=== PATIENT | male | born 1960 | race African-American/Black ===

== ENCOUNTER 2023-11-21 04:08 | Emergency (ER) | payer MEDICAID ==
[~2023-11-21] VITALS: Ht 170.2 cm; Wt 87.0 kg
[~2023-11-21 04:08] MED LIST: ASPI-1497 PO; FURO20TA4 PO; HYDR50TA PO
[2023-11-21 04:09] VITALS: TEMP 98.4; O2SAT 99
[2023-11-21 04:45] VITALS: BP 134/68; PULSE 80; RESP 20
[2023-11-21 05:11] LABS: HEMATOCRIT. 36.9 % (42.0-52.0); HEMOGLOBIN. 12.3 g/dL (14.0-18.0); MEAN CORPUSCULAR HGB CONC 33.3 g/dL (31.0-37.0); MEAN CORPUSCULAR VOLUME 84.2 fL (80.0-94.0); PLATELET 220 x1000/uL (130-400); RED BLOOD CELL COUNT 4.38 mill/uL (4.7-6.1); RED CELL DISTRIBUTION WIDTH 14.5 % (11.6-14.6); WHITE BLOOD COUNT 15.7 x1000/uL (4.5-11.0)
[2023-11-21 05:17] LABS: CHLORIDE 105 mEq/L (98-107)
[2023-11-21 05:18] LABS: CARBON DIOXIDE 29 mEq/L (21-32); POTASSIUM 3.9 mEq/L (3.5-5.1); SODIUM 140 mEq/L (136-145)
[2023-11-21 05:19] LABS: CALCIUM 8.5 mg/dL (8.7-10.4)
[2023-11-21 05:24] LABS: ETHANOL BLOOD < 10 mg/dL (<10); GLUCOSE 109 mg/dL (70-105); UREA NITROGEN BLOOD 49 mg/dL (9-23)
[2023-11-21 05:25] LABS: ACETAMINOPHEN 3 ug/mL (10-30)
[2023-11-21 05:29] LABS: CREATININE 2.2 mg/dL (0.6-1.3)
[2023-11-21 05:32] LABS: DIFFERENTIAL COMMENT 1
[2023-11-21 07:39] LABS: PLATELET ESTIMATE NORMAL
[2023-11-21] MEDS: SODIUM CHLORIDE 0.9% 1,000 ML IV ONE (07:50)
[2023-11-21 09:42] LABS: CLARITY URINE CLEAR (CLEAR); COLOR URINE YELLOW (YELLOW); GLUCOSE URINE NEGATIVE (NEGATIVE); KETONES URINE NEGATIVE (NEGATIVE); LEUKOCYTE ESTERASE URINE NEGATIVE (NEGATIVE); NITRITE URINE NEGATIVE (NEGATIVE); OCCULT BLOOD URINE 1+ (NEGATIVE); PH URINE 5.5 (4.5-8.0); PROTEIN URINE TRACE (NEGATIVE); SPECIFIC GRAVITY URINE 1.011 (1.005-1.030); UROBILINOGEN URINE 0.2 E.U./dL (0.2-1.0)
[2023-11-21 09:59] LABS: BACTERIA URINE FEW; RBC URINE 0-2 /hpf (0-2); SQUAMOUS EPITHELIAL CELL URINE NONE SEEN /lpf (RARE/1+); WBC URINE 0-2 /hpf (0-2); YEAST URINE NONE SEEN
[2023-11-21 10:18] LABS: *AMPHETAMINES SCREEN URINE NEGATIVE (NEGATIVE); *BARBITURATES SCREEN URINE NEGATIVE (NEGATIVE); *COCAINE SCREEN URINE PRESUMPTIVE POSITIVE (NEGATIVE); ECSTASY MDMA SCREEN URINE NEGATIVE (NEGATIVE); METHADONE URINE SCREEN NEGATIVE (NEGATIVE); OPIATES URINE SCREEN NEGATIVE (NEGATIVE)
[2023-11-21 12:19] LABS: *BENZODIAZEPINES SCREEN URINE NEGATIVE (NEGATIVE); CANNABINOID URINE SCREEN NEGATIVE (NEGATIVE); PHENCYCLIDINE URINE SCREEN NEGATIVE (NEGATIVE)
== END 2023-11-21 12:55 | disposition home or self-care (01) ==
LOC: ER 04:08
DX: F19.90 Other psychoactive substance use, unspecified, uncomplicated (principal); I11.0 Hypertensive heart disease with heart failure; I50.9 Heart failure, unspecified; Z00.00 Encounter for general adult medical examination without abnormal findings
CPT/HCPCS: 80305; 80048; 81003; 80307; 80329; 80320; 85025; 36415; 93005; 99284; J7030; Z7610 ×2; G0480

== ENCOUNTER 2024-06-12 10:47 | Emergency (ER) | payer OTHER ==
[~2024-06-12] VITALS: Ht 175.3 cm; Wt 90.0 kg
[~2024-06-12 10:47] MED LIST changes: +ALBU6.7H15 INH; +BUDE10.27 INH; +FAMO20TA8 PO; +LISI10TA26 PO; +P20 MT; +[UNRECOGNIZED DRUG - CODE] PO
[2024-06-12 10:49] VITALS: BP 184/111; PULSE 97; RESP 18; TEMP 98.7; O2SAT 97
[2024-06-12] MEDS: AMLODIPINE 10MG TABLET PO ONE (12:27)
[2024-06-12] MEDS ORDERED: LISI10TA26 PO (13:08)
[2024-06-14] MEDS ORDERED: HYDR25TA78 (08:28)
[2024-06-14] MEDS ORDERED: AMLO5TAB88 (08:28)
[2024-06-14] MEDS ORDERED: HYDR25TA78 PO (09:05)
[2024-06-14] MEDS ORDERED: AMLO5TAB88 PO (09:05)
[2024-06-14] MEDS ORDERED: ALBU90AE INH (09:05)
[2024-06-14] MEDS ORDERED: THIA100T72 PO (09:05)
[2024-06-14] MEDS ORDERED: FOLI-43 PO (09:05)
[2024-06-14] MEDS ORDERED: PROT20 MT (09:05)
[2024-06-14] MEDS ORDERED: BUDE6.9H INH (09:05)
== END 2024-06-12 13:46 | disposition home or self-care (01) ==
LOC: ER 11:52
DX: T73.0XXA Starvation, initial encounter (principal); I10 Essential (primary) hypertension; K21.9 Gastro-esophageal reflux disease without esophagitis; Z79.82 Long term (current) use of aspirin; Z79.899 Other long term (current) drug therapy; X58.XXXA Exposure to other specified factors, initial encounter
CPT/HCPCS: 99283; Z7610 ×2

== ENCOUNTER 2024-10-14 12:06 | Emergency (ER) | payer OTHER ==
[~2024-10-14] VITALS: Ht 172.7 cm; Wt 85.0 kg
[~2024-10-14 12:06] MED LIST changes: -ALBU6.7H15 INH; +ALBU90AE INH; +AMLO5TAB88 PO; -ASPI-1497 PO; -BUDE10.27 INH; +BUDE6.9H INH; -FAMO20TA8 PO; +FOLI-43 PO; -FURO20TA4 PO; +HYDR25TA78 PO; -HYDR50TA PO; -LISI10TA26 PO; -P20 MT; +PROT20 MT; +THIA100T72 PO; -[UNRECOGNIZED DRUG - CODE] PO
[2024-10-14 12:09] VITALS: BP 174/106; PULSE 58; RESP 17; TEMP 37.1; O2SAT 100
[2024-10-14] MEDS ORDERED: SODIUM CHLORIDE 0.9% (SEPSIS BOLUS) IV ONE (12:45)
[2024-10-14] MEDS ORDERED: VANCOMYCIN 1G PREMIX 200 ML IV ONE (12:45)
[2024-10-14] MEDS ORDERED: PIPERACILLIN/TAZO 3.375G/50ML 50 ML IV ONE (12:45)
== END 2024-10-14 13:51 | disposition left against medical advice (07) ==
LOC: ER 12:06 → EDBEDREQ 12:44 → ER 13:51
DX: R10.9 Unspecified abdominal pain (principal); J45.909 Unspecified asthma, uncomplicated; I10 Essential (primary) hypertension; Z79.899 Other long term (current) drug therapy; Z98.890 Other specified postprocedural states
CPT/HCPCS: 99283; J7030

== ENCOUNTER 2025-03-04 11:33 | Inpatient (IN) | payer OTHER ==
[2025-03-04] VITALS (25 sets, daily range): BP systolic 139–190; BP diastolic 71–105; PULSE 77–102; RESP 14–36; TEMP 36.8–36.8072; O2SAT 94–100
[~2025-03-04] VITALS: Ht 172.7 cm; Wt 74.4 kg
[2025-03-04 12:27] LABS: HEMATOCRIT. 35.4 % (42.0-52.0); HEMOGLOBIN. 11.0 g/dL (14.0-18.0); MEAN PLATELET VOLUME 8.0 fl (7.4-10.4); PLATELET 261 x1000/uL (130-400); RED BLOOD CELL COUNT 4.93 mill/uL (4.7-6.1); RED CELL DISTRIBUTION WIDTH 18.7 % (11.6-14.6)
[2025-03-04 12:45] LABS: CLARITY URINE CLEAR (CLEAR); COLOR URINE YELLOW (YELLOW); GLUCOSE URINE NEGATIVE (NEGATIVE); KETONES URINE NEGATIVE (NEGATIVE); LEUKOCYTE ESTERASE URINE NEGATIVE (NEGATIVE); NITRITE URINE NEGATIVE (NEGATIVE); OCCULT BLOOD URINE 1+ (NEGATIVE); PH URINE 8.0 (4.5-8.0); PROTEIN URINE 3+ (NEGATIVE); SPECIFIC GRAVITY URINE 1.010 (1.005-1.030); UROBILINOGEN URINE 0.2 E.U./dL (0.2-1.0)
[2025-03-04 12:54] LABS: INR 1.1
[2025-03-04 12:58] LABS: CREATININE 1.2 mg/dL (0.6-1.3)
[2025-03-04 12:59] LABS: UREA NITROGEN BLOOD 12 mg/dL (9-23)
[2025-03-04 13:00] LABS: ASPARTATE AMINOTRANSFERASE 32 IU/L (<34); BILIRUBIN DIRECT 0.3 mg/dL (<=3.0)
[2025-03-04 13:01] LABS: BILIRUBIN TOTAL 1.0 mg/dL (0.1-1.0); PROTEIN TOTAL 7.3 g/dL (6.0-8.3)
[2025-03-04 13:30] LABS: SQUAMOUS EPITHELIAL CELL URINE RARE /lpf (RARE/1+)
[2025-03-04 13:31] LABS: RBC URINE 0-2 /hpf (0-2)
[2025-03-04 13:32] LABS: BACTERIA URINE NONE SEEN; WBC URINE NONE SEEN /hpf (0-2)
[2025-03-04 13:45] LABS: BAND% 3.0 % (1.0-6.0); LYMPHOCYTES % MANUAL 5.0 % (20.0-50.0); MONOCYTES % MANUAL 3.0 % (2.0-8.0); NEUTROPHILS % MANUAL 89.0 % (45.0-75.0); PLATELET ESTIMATE NORMAL
[2025-03-04 14:01] LABS: *AMPHETAMINES SCREEN URINE NEGATIVE (NEGATIVE)
[2025-03-04 14:02] LABS: *BARBITURATES SCREEN URINE NEGATIVE (NEGATIVE); *BENZODIAZEPINES SCREEN URINE NEGATIVE (NEGATIVE); *COCAINE SCREEN URINE PRESUMPTIVE POSITIVE (NEGATIVE); CANNABINOID URINE SCREEN NEGATIVE (NEGATIVE); ECSTASY MDMA SCREEN URINE NEGATIVE (NEGATIVE); METHADONE URINE SCREEN NEGATIVE (NEGATIVE); OPIATES URINE SCREEN NEGATIVE (NEGATIVE); PHENCYCLIDINE URINE SCREEN NEGATIVE (NEGATIVE)
[2025-03-04] MEDS ORDERED: NICARDIPINE 40MG/200ML PREMIX 200 ML IV PRN (14:15)
[2025-03-04] MEDS: LABETALOL 5MG/ML 4ML INJ IV ONE (15:09)
[2025-03-04] MEDS: NICARDIPINE 40MG/200ML PREMIX 200 ML IV PRN ×2 (16:03→21:19)
[2025-03-04] MEDS ORDERED: HYDROCODONE/ACETAMINOPHEN 5/325MG TABLET PO PRN (17:30)
[2025-03-04] MEDS ORDERED: ACETAMINOPHEN 325MG TABLET PO PRN (17:30)
[2025-03-04] MEDS ORDERED: MAGNESIUM/ALUMINUM HYDROXIDE/SIMETHICONE 30ML UDC PO PRN (17:30)
[2025-03-04] MEDS ORDERED: NALOXONE HCL 0.4MG/ML VIAL IV PRN (17:30)
[2025-03-04] MEDS ORDERED: ZOLPIDEM TARTRATE 5MG TABLET PO PRN (17:30)
[2025-03-04] MEDS ORDERED: CEFTRIAXONE 1GM/50ML 50 ML IV SCH (18:00)
[2025-03-04] MEDS: ENOXAPARIN 40MG/0.4ML SYR SUBCUT SCH (18:29)
[2025-03-04] MEDS: CEFTRIAXONE 1GM/50ML 50 ML IV SCH (21:12)
[2025-03-04] MEDS: ONDANSETRON HCL 4MG/2ML INJ IV PRN (21:38)
[2025-03-04 23:53] LABS: TROPONIN I HIGH SENSITIVITY 94 ng/L (3.0-53)
[2025-03-05] VITALS (94 sets, daily range): BP systolic 130–188; BP diastolic 71–128; PULSE 63–89; RESP 10–28; TEMP 36.6–36.8; O2SAT 94–100
[2025-03-05 05:43] LABS: HEMATOCRIT. 40.0 % (42.0-52.0); HEMOGLOBIN. 12.5 g/dL (14.0-18.0); MEAN PLATELET VOLUME 8.4 fl (7.4-10.4); PLATELET 250 x1000/uL (130-400); RED BLOOD CELL COUNT 5.50 mill/uL (4.7-6.1); RED CELL DISTRIBUTION WIDTH 18.4 % (11.6-14.6)
[2025-03-05 05:58] LABS: CREATININE 1.1 mg/dL (0.6-1.3); UREA NITROGEN BLOOD 13 mg/dL (9-23)
[2025-03-05 06:00] LABS: TROPONIN I HIGH SENSITIVITY 111 ng/L (3.0-53)
[2025-03-05] MEDS ORDERED: CEFTRIAXONE 1GM/50ML 50 ML IV SCH (08:30)
[2025-03-05 08:53] LABS: BAND% 2.0 % (1.0-6.0); LYMPHOCYTES % MANUAL 8.0 % (20.0-50.0); MONOCYTES % MANUAL 6.0 % (2.0-8.0); NEUTROPHILS % MANUAL 84.0 % (45.0-75.0)
[2025-03-05 08:54] LABS: PLATELET ESTIMATE NORMAL
[2025-03-05] MEDS: ASPIRIN 81MG TABLET PO SCH (09:31)
[2025-03-05] MEDS: PANTOPRAZOLE SODIUM 40 MG/VIAL IV SCH (09:31)
[2025-03-05] MEDS: FUROSEMIDE 40MG/4ML VIAL IVP SCH (09:31)
[2025-03-05] MEDS: LOSARTAN 50 MG TABLET PO SCH (09:32)
[2025-03-05] MEDS: AMLODIPINE 5MG TABLET PO SCH ×2 (09:32→20:16)
[2025-03-05] MEDS: AZITHROMYCIN 500MG/250ML 250 ML IV SCH (09:32)
[2025-03-05] MEDS ORDERED: NICARDIPINE 50 MG in SODIUM CHLORIDE 0.9% 250 ML IV PRN (10:00)
[2025-03-05] MEDS: POTASSIUM CHLORIDE 20MEQ/PACKET PO SCH (13:09)
[2025-03-05] MEDS: CLONIDINE 0.1MG TABLET PO PRN (13:09)
[2025-03-05] MEDS: POTASSIUM CHLORIDE 20MEQ TABLET SR PO SCH (13:29)
[2025-03-05] MEDS: ATORVASTATIN CALCIUM 20MG TABLET PO SCH (20:15)
[2025-03-06] VITALS (10 sets, daily range): BP systolic 129–176; BP diastolic 81–103; PULSE 61–70; RESP 11–20; TEMP 35.6–37; O2SAT 97–100
[2025-03-06 06:32] LABS: UREA NITROGEN BLOOD 28.0 mg/dL (9-23)
[2025-03-06 06:40] LABS: CREATININE 1.7 mg/dL (0.6-1.3)
[2025-03-06 06:47] LABS: BASOPHILS % 0.7 % (0.0-2.0); EOSINOPHILS % 0.9 % (0.0-5.0); HEMATOCRIT. 35.2 % (42.0-52.0); HEMOGLOBIN. 11.2 g/dL (14.0-18.0); LYMPHOCYTES % 13.8 % (20.0-50.0); MEAN PLATELET VOLUME 8.3 fl (7.4-10.4); MONOCYTES % 9.1 % (2.0-8.0); NEUTROPHILS % 75.5 % (40.0-76.0); PLATELET 237 x1000/uL (130-400); RED BLOOD CELL COUNT 4.98 mill/uL (4.7-6.1); RED CELL DISTRIBUTION WIDTH 18.5 % (11.6-14.6)
[2025-03-06] MEDS: LOSARTAN 50 MG TABLET PO SCH (12:43)
[2025-03-07] MEDS ORDERED: FUROSEMIDE 20MG TABLET PO SCH (09:00)
== END 2025-03-06 14:21 | disposition left against medical advice (07) | DRG 816 ==
LOC: ER 11:49 → MICUNO 16:14 → EDBEDREQSVC 16:16 → EDBEDREQTM 16:43 → EDBEDREQ 16:43 → ENRESERV 17:43 → 8WST 03-06 01:30
PROVIDERS: ADMIT Internal Medicine; ATTEND Internal Medicine
DX: T40.5X1A Poisoning by cocaine, accidental (unintentional), initial encounter (principal); G92.8 Other toxic encephalopathy; L89.153 Pressure ulcer of sacral region, stage 3; L89.613 Pressure ulcer of right heel, stage 3; L89.623 Pressure ulcer of left heel, stage 3; I11.0 Hypertensive heart disease with heart failure; I16.1 Hypertensive emergency; J68.0 Bronchitis and pneumonitis due to chemicals, gases, fumes and vapors; I50.9 Heart failure, unspecified; F14.10 Cocaine abuse, uncomplicated; F17.210 Nicotine dependence, cigarettes, uncomplicated; I35.0 Nonrheumatic aortic (valve) stenosis; Z53.29 Procedure and treatment not carried out because of patient's decision for other reasons; K43.9 Ventral hernia without obstruction or gangrene; Z79.899 Other long term (current) drug therapy; Y92.89 Other specified places as the place of occurrence of the external cause; I69.351 Hemiplegia and hemiparesis following cerebral infarction affecting right dominant side; Z79.51 Long term (current) use of inhaled steroids
CPT/HCPCS: 36415; 71045; 80048; 80076; 80305; 80307; 80320; 80329; 81003; 82140; 82550; 82962; 83735; 84443; 84484; 85025; 93005; 93306; 93970; 96374; 96375; 99285; J0456; J0696; J1650; J1938; J2405; J2470; J3490; J7050; G0480